=== PATIENT | male | born 1955 | race American Indian/Alaskan Native ===

== ENCOUNTER 2019-11-30 19:11 | Emergency (ER) | payer OTHER, MEDICAID ==
[2019-11-30] MEDS ORDERED: HALOPERIDOL LACTATE 5 MG/1 ML INJ IM PRN (19:48)
[2019-11-30] MEDS ORDERED: chlordiazePOXIDE 25 MG CAP PO PRN ×2 (19:48)
[2019-11-30] MEDS ORDERED: LORazepam 2 MG TAB PO PRN ×2 (19:48)
[2019-11-30] MEDS ORDERED: LORazepam 2 MG/ML VIAL IM PRN (19:48)
[2019-11-30] MEDS ORDERED: DEXTROSE 50% IN WATER (25GM) 50 ML VIAL IV PRN (19:51)
--- NOTE | 2019-11-30 19:53 | Emergency Department Report ---
<HUE SOUSA - Last Filed: 12/01/19 01:10> ED General Adult HPI - General Chief complaint: Alcohol Stated complaint: ETOH/UNRESPONSIVE PUI?: No Source: patient, EMS ( EMS documentation not available at time of chart dictation ), RN notes reviewed Mode of arrival: Stretcher Limitations: Other (Intoxication) - History of Present Illness Initial comments: The patient was evaluated in the emergency department for symptoms described in the history of present illness. He/she was evaluated in the context of the global COVID-19 pandemic, which necessitated consideration that the patient might be at risk for infection with the virus that causes COVID-19. Institutional protocols and algorithms that pertain to the evaluation of patients at risk for COVID-19 are in a state of rapid change based on information released by regulatory bodies including the CDC and federal and state organizations. These policies and algorithms were followed during the patient's care in the emergency department. Please note that these policies, procedures and recommendations changed on a rapid basis. The patient is a 64-year-old gentleman. He is not known to myself previously. He is brought to the hospital by emergency medical services. The patient apparently consumed alcohol and may have lost consciousness/passed out. The patient himself is intoxicated and is not quite sure what happened. He denies physical pain to myself. He is asking to eat and drink. He denies headache, neck pain, chest pain, abdominal pain, shortness of breath, and he denies homicidality and suicidality. It is unclear who contacted emergency medical services. The patient is not accompanied by friends or family at this time, and therefore collateral information is not available. Patient is intoxicated, therefore, has difficulty describing the qualitative nature of his symptoms, exacerbating, relieving factors, or aggravating factors. -: unknown - Related Data Previous Rx's Medication Instructions Recorded Last Taken Type Amlodipine Besylate [Norvasc] 5 mg PO QDAY #30 tablet 12/01/19 Unknown Rx Magnesium Oxide 400 mg PO QDAY #15 tablet 12/01/19 Unknown Rx Multivitamin with Folic Acid [[facility] 400 mcg PO QDAY #30 tablet 12/01/19 Unknown Rx One Daily Essential Tablet] Potassium Chloride [K-Dur] 20 meq PO BID #30 tab 12/01/19 Unknown Rx chlordiazePOXIDE [Librium] 25 mg PO Q6H PRN #25 capsule 12/01/19 Unknown Rx Allergies Allergy/AdvReac Type Severity Reaction Status Date / Time No Known Allergies Allergy Unverified 11/30/19 19:35 ED Review of Systems Comment: Unobtainable due to pts medical conditions ED Past Medical Hx - Past Medical History Previous Medical History?: Yes Hx Hypertension: Yes - Surgical History Past Surgical History?: No - Social History Smoking Status: Current Every Day Smoker Substance Use Type: Alcohol - Medications Home Medications: Home Medications Medication Instructions Recorded Confirmed Last Taken Type Amlodipine Besylate [Norvasc] 5 mg PO QDAY #30 tablet 12/01/19 Unknown Rx Magnesium Oxide 400 mg PO QDAY #15 tablet 12/01/19 Unknown Rx Multivitamin with Folic Acid [[facility] 400 mcg PO QDAY #30 tablet 12/01/19 Unknown Rx One Daily Essential Tablet] Potassium Chloride [K-Dur] 20 meq PO BID #30 tab 12/01/19 Unknown Rx chlordiazePOXIDE [Librium] 25 mg PO Q6H PRN #25 capsule 12/01/19 Unknown Rx ED Physical Exam - General Limitations: Other (Intoxication) General appearance: in no apparent distress, appears intoxicated - Head Head exam: Present: atraumatic, normocephalic - Eye Eye exam: Present: normal appearance, PERRL, EOMI. Absent: nystagmus - ENT ENT exam: Present: normal exam, normal orophraynx, mucous membranes moist, TM's normal bilaterally, normal external ear exam - Neck Neck exam: Present: normal inspection, full ROM. Absent: tenderness, meningismus - Respiratory Respiratory exam: Present: normal lung sounds bilaterally. Absent: respiratory distress, wheezes, rales, rhonchi, stridor, chest wall tenderness, accessory muscle use, decreased breath sounds, prolonged expiratory - Cardiovascular Cardiovascular Exam: Present: regular rate, normal rhythm, normal heart sounds. Absent: bradycardia, tachycardia, irregular rhythm, systolic murmur, diastolic murmur, rubs, gallop - GI/Abdominal GI/Abdominal exam: Present: soft. Absent: distended, tenderness, guarding, rebound, rigid, pulsatile mass - Rectal Rectal exam: Present: deferred - Extremities Exam Extremities exam: Present: normal inspection, full ROM, other (2+ pulses noted in the bilateral upper and lower extremities. There is no palpable cord. negative Homans sign. Muscular compartments are soft. The pelvis is stable.). Absent: pedal edema, calf tenderness - Back Exam Back exam: Present: normal inspection, full ROM. Absent: tenderness, CVA tenderness (R), CVA tenderness (L), paraspinal tenderness, vertebral tenderness - Neurological Exam Neurological exam: Present: other (No facial droop. Tongue midline. Extraocular movements intact bilaterally. Facial sensation intact to light touch in V1, V2, V3 distribution bilaterally. 5 and a 5 strength in 4 extremities. Sensation intact to light touch in 4 extremities.) - Psychiatric Psychiatric exam: Absent: homicidal ideation, suicidal ideation - Skin Skin exam: Present: warm, dry, intact, normal color. Absent: rash ED Course - Reevaluation(s) Reevaluation #1: 11/30/19 20:13 Differential diagnosis, including but not limited to: Alcohol intoxication, intracranial injury, electrolyte derangement, Assessment and plan: 64-year-old gentleman who is clinically intoxicated, with a reported history of unresponsiveness, moving 4 extremities, protecting his airway, not homicidal, not suicidal, in no acute distress. Patient placed on hold for intoxication. Obtain CT scan of the brain and cervical spine, appropriate laboratory studies, place patient on alcohol withdrawal protocol, and Accu-Cheks. EKG reviewed and appreciated, first-degree AV block is not symptomatic at this time. Patient can follow-up with an outpatient primary care doctor or medical administrator for this. We will reassess after his data points have resulted. Reevaluation #2: 11/30/19 21:07 Resting comfortably and in no acute distress. Found to have hypomagnesemia and hypokalemia, as well as evidence of dehydration. Anion gap likely secondary to alcohol intoxication, dehydration, and probable starvation ketosis. Reevaluation #3: 12/01/19 01:02 Patient unable to receive CT scan of the cervical spine secondary to u ncooperative behavior. Noncontrast CT scan of the brain was negative for acute findings. Patient required medication with haloperidol and Ativan to facilitate acquisition of diagnostics. CT scan of the cervical spine pending at this time. Patient is still intoxicated. Elevated blood pressure reviewed and appreciated. Hydralazine is ordered. It is uncertain if the patient is on chronic antihypertensive therapy. He will be started on Macrobid as well for possible urinary tract infection/py uria/bacteriuria. Care will be transferred to the overnight ER physician, Dr. Bennett Osman, to follow-up on CT scan of the cervical spine, and discharge when clinically sober ED Medical Decision Making - Lab Data Result diagrams: 11/30/19 19:44 11/30/19 19:44 Vital Signs 11/30/19 11/30/19 11/30/19 17:23 19:28 20:07 Temperature 98.1 F Pulse Rate Respiratory Rate Blood Pressure 124/52 111/64 O2 Sat by Pulse 100 94 Oximetry 11/30/19 20:08 Temperature Pulse Rate 86 Respiratory 14 Rate Blood Pressure O2 Sat by Pulse 99 Oximetry Lab Results 11/30/19 Range/Units 19:44 Hgb 11.7 L (11.8-15.2) gm/dl Hct 35.2 L (35.5-45.6) % Plt Count 174 (140-440) K/mm3 Lab Results 11/30/19 11/30/19 11/30/19 Range/Units 19:44 19:44 19:44 Hgb (11.8-15.2) gm/dl Hct (35.5-45.6) % Plt Count (140-440) K/mm3 Sodium 135 L (137-145) mmol/L Potassium 3.1 L (3.6-5.0) mmol/L Chloride 99.9 (98-107) mmol/L Carbon Dioxide 17 L (22-30) mmol/L Anion Gap 21 mmol/L BUN 18 (9-20) mg/dL Creatinine 1.5 H (0.8-1.3) mg/dL Estimated GFR 47 ml/min BUN/Creatinine Ratio 12 % Glucose 152 H (75-100) mg/dL POC Glucose (70-105) Calcium 8.7 (8.4-10.2) mg/dL Magnesium (1.7-2.3) mg/dL Total Creatine Kinase (55-170) units/L Salicylates < 0.3 L (2.8-20.0) mg/dL Acetaminophen 5.0 L (10.0-30.0) ug/mL Plasma/Serum Alcohol (0-0.07) % 11/30/19 11/30/19 11/30/19 Range/Units 19:44 19:44 19:44 Hgb 11.7 L (11.8-15.2) gm/dl Hct 35.2 L (35.5-45.6) % Plt Count 174 (140-440) K/mm3 Sodium (137-145) mmol/L Potassium (3.6-5.0) mmol/L Chloride (98-107) mmol/L Carbon Dioxide (22-30) mmol/L Anion Gap mmol/L BUN (9-20) mg/dL Creatinine (0.8-1.3) mg/dL Estimated GFR ml/min BUN/Creatinine Ratio % Glucose (75-100) mg/dL POC Glucose (70-105) Calcium (8.4-10.2) mg/dL Magnesium 1.30 L (1.7-2.3) mg/dL Total Creatine Kinase 54 L (55-170) units/L Salicylates (2.8-20.0) mg/dL Acetaminophen (10.0-30.0) ug/mL Plasma/Serum Alcohol 0.23 H (0-0.07) % 11/30/19 Range/Units 20:32 Hgb (11.8-15.2) gm/dl Hct (35.5-45.6) % Plt Count (140-440) K/mm3 Sodium (137-145) mmol/L Potassium (3.6-5.0) mmol/L Chloride (98-107) mmol/L Carbon Dioxide (22-30) mmol/L Anion Gap mmol/L BUN (9-20) mg/dL Creatinine (0.8-1.3) mg/dL Estimated GFR ml/min BUN/Creatinine Ratio % Glucose (75-100) mg/dL POC Glucose 139 H (70-105) Calcium (8.4-10.2) mg/dL Magnesium (1.7-2.3) mg/dL Total Creatine Kinase (55-170) units/L Salicylates (2.8-20.0) mg/dL Acetaminophen (10.0-30.0) ug/mL Plasma/Serum Alcohol (0-0.07) % - EKG Data -: EKG Interpreted by Pr EKG shows normal: sinus rhythm Rate: normal - EKG Data When compared to previous EKG there are: previous EKG unavailable 11/30/19 20:12 Sinus rhythm, 86 bpm, normal axis, first-degree AV block/prolonged KS interval, QTC prolonged, minimal motion artifact, the EKG is abnormal, the EKG is not a STEMI - Radiology Data Radiology results: image reviewed interpreted by me: X-ray of the chest, 1 view, interpreted by myself, no infiltrate, no pneumothorax, unremarkable cardiac silhouette, no acute osseous abnormality. ED Disposition Clinical Impression: Hypokalemia, Hypomagnesemia, Alcohol intoxication, Renal insufficiency, Closed head injury, Pyuria, Elevated blood pressure reading, Carotid arterial disease Disposition: - TO HOME OR SELFCARE Is pt being admited?: No Does the pt Need Aspirin: No Condition: Good Additional Instructions: Do not drive or operate motor vehicles until cleared to do so by a primary care doctor. We recommend the patient follow-up with a primary care doctor within the next 5 days. Take the potassium, magnesium supplementation as directed, multivitamins as directed, antibiotics as directed, and Librium medication as needed for sensation of alcohol withdrawal. Avoid consumption of Motrin, ibuprofen, Naprosyn, Aleve. Avoid consumption of recreational drugs such as alcohol and cocaine. Avoid all consumption of recreational drugs. Consumption of recreational drugs may cause addiction, disability, paralysis, loss of quality of life. Return to the emergency room right away with new pain, worsening pain, migration of pain, projectile vomiting, change in mental status, confusion, inability to tolerate liquid feeds, new, worsened or different symptoms not present on the initial emergency room evaluation Patient was found to have elevated blood pressure in the emergency room. Foll ow-up with a primary care doctor for this within the next month. Patient should exercise as tolerated, avoid consumption of alcohol and recreational drugs, eat plenty of fiber, vegetables, lean protein, and should be mindful that long-term complications of hypertension and elevated blood pressure or risk factors for stroke, heart attack, disability, loss of quality of life. Take the blood pressure medication as directed. Prescriptions: Multivitamin with Folic Acid [Cvs One Daily Essential Tablet] 400 mcg PO QDAY #30 tablet Potassium Chloride [K-Dur] 20 meq PO BID #30 tab chlordiazePOXIDE [Librium] 25 mg PO Q6H PRN #25 capsule PRN Reason: Alcohol Withdrawal Magnesium Oxide 400 mg PO QDAY #15 tablet Amlodipine Besylate [Norvasc] 5 mg PO QDAY #30 tablet Referrals: MALLY VELAZQUEZ MD [Staff Physician] - 3-5 Days <JAQUI OSMAN - Last Filed: 12/01/19 05:19> ED Review of Systems ROS: Stated complaint: ETOH/UNRESPONSIVE Other details as noted in HPI ED Course Vital Signs 11/30/19 11/30/19 11/30/19 17:23 19:28 19:58 Temperature Pulse Rate 89 Respiratory 18 Rate Blood Pressure 124/52 111/64 159/95 Blood Pressure [Left] O2 Sat by Pulse 100 94 100 Oximetry 11/30/19 11/30/19 11/30/19 20:00 20:07 20:08 Temperature 98.1 F Pulse Rate 90 86 Respiratory 13 14 Rate Blood Pressure 159/95 Blood Pressure [Left] O2 Sat by Pulse 99 99 Oximetry 11/30/19 12/01/19 12/01/19 22:01 00:07 02:00 Temperature Pulse Rate 91 H 95 H 99 H Respiratory 12 18 Rate Blood Pressure 189/125 189/125 190/139 Blood Pressure [Left] O2 Sat by Pulse 100 98 Oximetry 12/01/19 12/01/19 03:14 03:58 Temperature Pulse Rate 101 H 82 Respiratory 16 Rate Blood Pressure 211/142 Blood Pressure 196/123 [Left] O2 Sat by Pulse 99 Oximetry ED Medical Decision Making - Lab Data Result diagrams: 11/30/19 19:44 11/30/19 19:44 - Radiology Data Radiology results: report reviewed CT cervical spine wo con INDICATION: Found unresponsive on floor. TECHNIQUE: All CT scans at this location are performed using the following dose modulation technique: Automated exposure control. CONTRAST: None. COMPARISON: None available. FINDINGS: Several millimeters or retrolisthesis of C3 on C4 and C5 on C6 are likely degenerative. Multilevel DDD extending from C3 as C7 and is at least moderate in degree. Multilevel uncovertebral DJD is also present. No bony injury. Evaluation of the soft tissues demonstrates no soft tissue injury. Atherosclerotic calcification seen at the coronary arteries and is dense on the right. IMPRESSION: 1. Multilevel degenerative change without bony injury. 2. Dense atherosclerotic calcification at the right carotid artery with suspected high-grade stenosis or occlusion. - Medical Decision Making I informed patient of carotid artery disease. I strongly recommended evaluation by medical administrator. Critical care attestation.: If time is entered above; I have spent that time in minutes in the direct care of this critically ill patient, excluding procedure time. ED Disposition Is pt being admited?: No Does the pt Need Aspirin: No
[2019-11-30 20:10] LABS: Hematocrit 35.2 % (35.5-45.6); Hemoglobin 11.7 gm/dl (11.8-15.2)
--- NOTE | 2019-11-30 20:13 | XRay Report ---
CHEST 1 VIEW 11/30/2019 7:02 PM INDICATION / CLINICAL INFORMATION: etoh found unresponsive. COMPARISON: None available. FINDINGS: SUPPORT DEVICES: None. HEART / MEDIASTINUM: No significant abnormality. LUNGS / PLEURA: No significant pulmonary or pleural abnormality. No pneumothorax. ADDITIONAL FINDINGS: No significant additional findings. IMPRESSION: 1. No acute findings. Signer Name: Chester Maher MD Signed: 11/30/2019 8:08 PM Workstation Name: [id number]
[2019-11-30 20:20] LABS: Calcium 8.7 mg/dL (8.4-10.2)
[2019-11-30] MEDS ORDERED: MAGNESIUM OXIDE 400 MG TAB PO STA (21:05)
[2019-11-30] MEDS ORDERED: MAGNESIUM SULFATE 2 GM/50 ML BAG IV ONE (21:05)
[2019-11-30] MEDS ORDERED: POTASSIUM CHLORIDE ER 20 MEQ TAB PO ONE (21:05)
[2019-11-30] MEDS ORDERED: THIAMINE 100 MG, FOLIC ACID 1 MG, MULTIPLE VITAMIN INJ, ADULT 10 ML in SODIUM CHLORIDE ... IV ONE (21:06)
[2019-11-30 21:40] LABS: Bacteria,Urine 1+ /HPF (Negative); Bilirubin,Urine NEG (Negative); Blood,Urine SM (Negative); Color,Urine Yellow (Yellow); Mucus,Urine FEW /HPF
[2019-11-30 21:42] LABS: Amphetamine Screen,Urine PRESUMPTIVE NEGATIVE; Benzodiazepines Screen,Urine PRESUMPTIVE NEGATIVE; Cannabinoid Screen,Urine PRESUMPTIVE NEGATIVE; Cocaine Screen,Urine PRESUMPTIVE POSITIVE; Methadone Screen,Urine PRESUMPTIVE NEGATIVE; Opiate Screen,Urine PRESUMPTIVE NEGATIVE
[2019-11-30] MEDS: POTASSIUM CHLORIDE 10 MEQ 10 MEQ/100 ML BAG IV SCH ×2 (22:02→23:56)
[2019-11-30] MEDS ORDERED: NITROFURANTOIN MONOHYD/M-CRYST 100 MG CAP PO ONE (22:33)
[2019-11-30] MEDS ORDERED: LORazepam 2 MG/ML VIAL IV STA (23:50)
--- NOTE | 2019-12-01 00:11 | Cat Scan Report ---
CT head/brain wo con INDICATION: Found unresponsive on floor. TECHNIQUE: All CT scans at this location are performed using the following dose modulation technique: Automated exposure control. CONTRAST: None. COMPARISON: None available. FINDINGS: The ventricular system is appropriate in size and configuration without midline shift accou nting for diffuse cerebral atrophy. Low density within the periventricular white matter is typical of small vessel ischemic change. Negative for abdominal mass, fluid or inflammation. Evaluation of the paranasal sinuses demonstrate complete opacification of the right maxillary sinus a nd partial opacification of the sphenoid sinuses left greater than right. IMPRESSION: 1. Chronic atrophy and small vessel ischemia. 2. Chronic sinus disease. Signer Name: Boone Cortes MD Signed: 12/01/2019 12:06 AM Workstation Name: [id number]
[2019-12-01] MEDS ORDERED: hydrALAZINE 20 MG/1 ML INJ IV ONE (01:02)
--- NOTE | 2019-12-01 02:01 | Cat Scan Report ---
CT cervical spine wo con INDICATION: Found unresponsive on floor. TECHNIQUE: All CT scans at this location are performed using the following dose modulation technique: Automated exposure control. CONTRAST: None. COMPARISON: None available. FINDINGS: Several millimeters or retrolisthesis of C3 on C4 and C5 on C6 are likely degenerative. Mul tilevel DDD extending from C3 as C7 and is at least moderate in degree. Multilevel uncovertebral DJD is also present. No bony injury. Evaluation of the soft tissues demonstrates no soft tissue injury. Atherosclerotic calcification seen at the coronary arteries and is dense on the right. IMPRESSION: 1. Multilevel degenerative change without bony injury. 2. Dense atherosclerotic calcification at the right carotid artery with suspected high-grade stenosis or occlusion. Signer Name: Boone Cortes MD Signed: 12/01/2019 1:56 AM Workstation Name: [id number]
[2019-12-01 09:29] VITALS: BP 192/128
== END 2019-12-01 11:30 | disposition home or self-care (01) ==
LOC: ED 19:11
DX: S09.90XA Unspecified injury of head, initial encounter (principal); E87.6 Hypokalemia; E83.42 Hypomagnesemia; F10.129 Alcohol abuse with intoxication, unspecified; N28.9 Disorder of kidney and ureter, unspecified; R82.81 Pyuria; R03.0 Elevated blood-pressure reading, without diagnosis of hypertension; G45.1 Carotid artery syndrome (hemispheric); F17.200 Nicotine dependence, unspecified, uncomplicated; Z79.899 Other long term (current) drug therapy; X58.XXXA Exposure to other specified factors, initial encounter; Y93.89 Activity, other specified; Y92.89 Other specified places as the place of occurrence of the external cause; Y99.8 Other external cause status
CPT/HCPCS: 36415; 70450; 71045; 72125; 80048; 80307; 81001; 82550; 82962; 83735; 85014; 85018; 85049; 87076; 87086; 87186; 93005; 96365; 96366; 96367; 96368; 96372; 96375; 96376; 99285; J1630; J2060; J3411; J3475; J3480; J7030; 80320; G0480